=== PATIENT | male | born 1970 | race Caucasian/White ===

== ENCOUNTER 2018-01-09 14:10 | Emergency (ER) | payer MEDICAID ==
[~2018-01-09] VITALS: Ht 185.4 cm; Wt 72.0 kg
[~2018-01-09 14:10] MED LIST: KEP500T PO; LEVE250T PO; NO HOME MEDS
[2018-01-09] MEDS ORDERED: ibuprofen tablet 400 MG TABLET PO ONE (14:30)
[2018-01-09] MEDS ORDERED: acetaminophen 325mg tablet PO ONE (14:30)
[2018-01-09] MEDS ORDERED: LIDOcaine 1% 30ml preserv. free vial IJ ONE (14:30)
[2018-01-09] MEDS ORDERED: DOXY100C43 PO (14:58)
[2018-01-09 15:13] VITALS: BP 150/90
== END 2018-01-09 15:14 | disposition home or self-care (01) ==
LOC: ER 14:11
DX: L02.212 Cutaneous abscess of back [any part, except buttock and flank] (principal); Z56.0 Unemployment, unspecified; Z79.899 Other long term (current) drug therapy
CPT/HCPCS: 10060; 87070; 87077; 87186; 99284; A6266; A6449; J3490

== ENCOUNTER 2020-02-21 15:19 | Emergency (ER) | payer MEDICAID ==
[~2020-02-21] VITALS: Ht 185.4 cm; Wt 77.3 kg
[2020-02-21 15:23] VITALS: BP 134/81
[2020-02-21] MEDS ORDERED: SULF1TAB49 PO (16:40)
[2020-02-21] MEDS ORDERED: AMOX-422 PO (16:40)
== END 2020-02-21 17:49 | disposition home or self-care (01) ==
LOC: ER 15:20
DX: L02.01 Cutaneous abscess of face (principal); L03.211 Cellulitis of face; E78.00 Pure hypercholesterolemia, unspecified; Z86.69 Personal history of other diseases of the nervous system and sense organs; Z56.0 Unemployment, unspecified; Z79.2 Long term (current) use of antibiotics; Z79.899 Other long term (current) drug therapy
CPT/HCPCS: 99283